=== PATIENT | male | born 1955 | race Caucasian/White ===

== ENCOUNTER 2017-08-11 12:30 | Emergency (ER) | payer BC ==
[~2017-08-11] VITALS: Ht 175.3 cm; Wt 105.8 kg
[~2017-08-11 12:30] MED LIST: ASPIR-TRIN325 M1 PO; ASPIRIN CHEWABL81 M1 PO; NOHOMEMEDS
[2017-08-11 12:56] LABS: HEMATOCRIT 46.8 % (38.0-50.0); HEMOGLOBIN 15.8 G/DL (12.5-16.6); MCH 31.5 PG (29.0-34.0); MCHC 33.8 G/DL (30.0-36.0); MCV 93.2 FL (86-99); PLATELET COUNT 229 K/uL (156-360); RBC DIS.WIDTH-CV 13.5 % (11.8-14.6); RED BLOOD COUNT 5.02 M/uL (4.00-5.50); WHITE BLOOD COUNT 7.9 K/uL (4.1-10.2)
[2017-08-11 13:07] LABS: CHLORIDE 108 mEq/L (99-109); POTASSIUM 4.3 mEq/L (3.7-5.4); SODIUM 142 mEq/L (136-147)
[2017-08-11 13:09] LABS: GLUCOSE 162 mg/dL (70-99)
[2017-08-11 13:13] LABS: CREATININE 0.9 mg/dL (0.6-1.3); GFR ESTIMATE (CALCULATED) > 59 mL/min/ (58.99-99999)
[2017-08-11 13:14] LABS: UREA NITROGEN (BUN) 12 mg/dL (9-23)
[2017-08-11 14:00] LABS: APPEARANCE CLEAR ((CLEAR)); BILIRUBIN NEGATIVE; BLOOD NEGATIVE; COLOR YELLOW ((YELLOW)); GLUCOSE (STRIP) 50; KETONES NEGATIVE; LEUKOCYTES NEGATIVE; NITRITE NEGATIVE; PROTEIN (STRIP) NEGATIVE; UCUL ADDED? NO; UROBILINOGEN 0.2 MG/DL (0.2-1.0)
[2017-08-11] MEDS ORDERED: FLEXERIL10 MG PO (14:57)
[2017-08-11 15:18] VITALS: BP 140/69
== END 2017-08-11 15:19 | disposition home or self-care (01) ==
LOC: EME 12:30
DX: R10.9 Unspecified abdominal pain (principal); M54.5 Low back pain; R73.9 Hyperglycemia, unspecified; F17.200 Nicotine dependence, unspecified, uncomplicated; Z90.49 Acquired absence of other specified parts of digestive tract; Z79.82 Long term (current) use of aspirin
CPT/HCPCS: 74174; 80048; 81003; 85027; 99281; 99285; J7030